=== PATIENT | female | born 1960 | race Two or more races ===

== ENCOUNTER 2018-07-30 14:00 | Emergency (ER) | payer MEDICAID ==
[~2018-07-30] VITALS: Ht 152.4 cm; Wt 60.0 kg
[2018-07-30] MEDS ORDERED: HYDR25TA PO (14:22)
[2018-07-30] MEDS ORDERED: LISI-662 PO (14:22)
[2018-07-30] MEDS ORDERED: SODIUM CHLORIDE 0.9% 1,000 ML IV ONE (16:00)
[2018-07-30] MEDS ORDERED: KETOROLAC TROMETHAMINE 30 MG/ML VIAL IVP ONE (16:00)
[2018-07-30] MEDS ORDERED: DiphenhydrAMINE HCL 50 MG/ML VIAL IVP ONE (16:00)
[2018-07-30] MEDS ORDERED: ONDANSETRON HCL 4 MG/2 ML VIAL IVP ONE (16:00)
[2018-07-30 17:17] VITALS: BP 129/77
== END 2018-07-30 17:20 | disposition home or self-care (01) ==
LOC: EMS 14:02
DX: G43.909 Migraine, unspecified, not intractable, without status migrainosus (principal); R11.2 Nausea with vomiting, unspecified; I10 Essential (primary) hypertension; Z79.899 Other long term (current) drug therapy
CPT/HCPCS: 96361; 96374; 96375; 99283; J1200; J1885; J2405; J7030